=== PATIENT | male | born 1955 | race Caucasian/White ===

== ENCOUNTER → 2018-06-10 | Day surgery (SDC) | payer OTHER ==
[2018-06-02 13:21] VITALS: BMI 46.0
[~2018-06-10] VITALS: Ht 185.4 cm; Wt 159.1 kg
[~2018-06-10] MED LIST: ASPI81TA28 PO; ATEN50TA8 PO; ATOR-24 PO; DULO60CA44 PO; HYDR25TA4 PO; INSPMPNVLG; LIDOCAINE HCL 2% 2 ML VIAL (20MG/ML) ONE; LISI-729 PO; NIFE90TA PO; NTRGSL/4 UT; ONDANSETRON INJ 2 MG/ML 2 ML VIAL IV PRN; POTA-639 PO; PROPOFOL IV EMULSION 10 MG/ML 20 ML VIAL ONE
[2018-06-10 09:00] VITALS: Ht 185.4 cm; Wt 159.1 kg
--- NOTE | 2018-06-10 09:14 | Endo History and Physical ---
History & Physical Date of Service: Jun 10, 2018. Chief Complaint: FAMILY HISTORY OF COLON CANCER Referring Physician: DR JAYLEN TYSON History of Present Illness Patient with a family history of colorectal cancer in his father over age 80. He presents for colon rectal cancer screening today. He has no specific complaints or issues this afternoon. Past Surgical History Hx Cardiac Surgery: Yes (HEART CATH, NO STENTS) Hx Internal Defibrillator: No Hx Pacemaker: No Hx Abdominal Surgery: Yes (LAP JUVENCIO) Hx of Implantable Prosthesis: No Hx Post-Op Nausea and Vomiting: Yes Hx Cancer Surgery: No Hx Thoracic Surgery: No Hx Orthopedic: Yes (L TKR X3, R TKA X3) Family History None Social History Smoking Status: Never Smoker Hx Substance Use: No Hx Alcohol Use: No Allergies Coded Allergies: Metformin (Verified Adverse Reaction, Unknown, SEVERE DIARRHEA, 06/10/18) Current Medications Reported Home Medications Medications Dose Route/Sig Max Daily Dose Days Date Category Procardia Xl (Nifedipine) 90 Mg Tab 90 Mg PO QAM 06/02/18 Reported Hctz (Hydrochlorothiazide) 25 Mg Tab 25 Mg PO DAILY 06/02/18 Reported Cymbalta (Duloxetine Hcl) 60 Mg Cap 60 Mg PO BID 06/02/18 Reported Tenormin (Atenolol) 50 Mg Tab 50 Mg PO QAM 06/02/18 Reported Aspirin Ec (Aspirin) 81 Mg Tab 81 Mg PO DAILY 06/02/18 Reported novoLOG INSULIN PUMP (Insulin Aspart) 1 Ea Inj 1 Ea N/A UD 06/02/18 Reported Klor-Con (Potassium Chloride) 20 Meq Tabcr 20 Meq PO DAILY 06/02/18 Reported Lipitor (Atorvastatin Calcium) 40 Mg Tab 40 Mg PO HS 06/02/18 Reported Nitrostat (Nitroglycerin) 0.4 Mg Tab 0.4 Mg UT PRN 06/02/18 Reported Prinivil (Lisinopril) 5 Mg Tab 5 Mg PO HS 06/02/18 Reported Vital Signs Weight (Kilograms): 159.09 Height (Feet): 6 Height (Inches): 1 Date Time Temp Pulse Resp B/P (MAP) Pulse Ox O2 Delivery O2 Flow Rate FiO2 06/10/18 09:10 36.7 58 18 177/119 (138) 97 Room Air Physical Exam General Appearance: no apparent distress Respiratory/Chest: Auscultation: breath sounds normal Cardiovascular: Heart Auscultation: RRR Abdomen: Inspection & Palpation: soft Assessment and Plan Patient for colonoscopy today for colorectal cancer screening. We discussed the risks to include bleeding, infection, perforation, pain and need for follow- up studies.
--- NOTE | 2018-06-10 09:58 | GI REPORT ---
Patient Name: Lonny Kimbrough Procedure Date: 06/10/2018 9:25 AM Date of : 1955 Admit Type: Outpatient Age: 63 Gender: Male Attending MD: Dion Toth DO Procedure: Colonoscopy Providers: Dion Toth DO Referring MD: Dakota Patino Indications: Screening patient at increased risk: Family history of 1st-degree relative with colorectal cancer at age 60 years (or older) Medicines: Monitored Anesthesia Care Complications: No immediate complications. Estimated blood loss: Minimal. Estimated Blood Loss: Estimated blood loss was minimal. Procedure: Pre-Anesthesia Assessment: - Prior to the procedure, a History and Physical was performed, and patient medications, allergies and sensitivities were reviewed. The patient's tolerance of previous anesthesia was reviewed. - The risks and benefits of the procedure and the sedation options and risks were discussed with the patient. All questions were answered and informed consent was obtained. - Patient identification and proposed procedure were verified prior to the procedure by the physician, the nurse and the clinic coordinator. The procedure was verified in the procedure room. - Pre-procedure physical examination revealed no contraindications to sedation. - ASA Grade Assessment: III - A patient with severe systemic disease. - After reviewing the risks and benefits, the patient was deemed in satisfactory condition to undergo the procedure. - The anesthesia plan was to use monitored anesthesia care (MAC). - Immediately prior to administration of medications, the patient was re-assessed for adequacy to receive sedatives. - The heart rate, respiratory rate, oxygen saturations, blood pressure, adequacy of pulmonary ventilation, and response to care were monitored throughout the procedure. - The physical status of the patient was re-assessed after the procedure. After I obtained informed consent, the scope was passed under direct vision. Throughout the procedure, the patient's blood pressure, pulse, and oxygen saturations were monitored continuously. The scope was introduced through the anus and advanced to the cecum, identified by appendiceal orifice and ileocecal valve. The colonoscopy was somewhat difficult due to a redundant colon, significant looping and the patient's body habitus. Successful completion of the procedure was aided by using manual pressure and withdrawing and reinserting the scope. The quality of the bowel preparation was adequate to identify polyps 6 mm and larger in size. Findings: The perianal and digital rectal examinations were normal. Pertinent negatives include normal sphincter tone. A 30 mm polyp was found in the cecum. The polyp was semi-pedunculated. The polyp was removed with a hot snare. Resection and retrieval were complete. To prevent bleeding after the polypectomy, two hemostatic clips were successfully placed (MR conditional). There was no bleeding at the end of the procedure. Internal hemorrhoids were found during retroflexion. The hemorrhoids were mild. A 5 mm polyp was found in the rectum. The polyp was sessile. The polyp was removed with a cold snare. Resection and retrieval were complete. Estimated blood loss was minimal. The exam was otherwise without abnormality. Impression: - One 30 mm polyp in the cecum, removed with a hot snare. Resected and retrieved. Clips (MR conditional) were placed. - Internal hemorrhoids. - One 5 mm polyp in the rectum, removed with a cold snare. Resected and retrieved. - The examination was otherwise normal. Recommendation: - Discharge patient to home (ambulatory). - Advance diet as tolerated - advance as tolerated to resume previous diet. - Await pathology results. - Repeat colonoscopy in 1 year for surveillance based on pathology results. Dion Toth D.O. Dion Toth, 06/10/2018 9:58:09 AM This report has been signed electronically. Note Initiated On: 06/10/2018 9:25 AM Number of Addenda: 0 I attest to the content of the Intraoperative Record and orders documented therein, exceptions below {[id number]}
--- NOTE | 2018-06-10 10:00 | Anesthesiology Progress Note ---
Anesthesia Post Op Note Date & Time Jun 10, 2018 at 10:00 Vital Signs Pain Intensity: 0 Vital Signs Past 12 Hours Date Time Temp Pulse Resp B/P (MAP) Pulse Ox O2 Delivery O2 Flow Rate FiO2 06/10/18 09:53 66 16 146/91 (109) 97 Room Air 06/10/18 09:10 36.7 58 18 177/119 (138) 97 Room Air Notes Mental Status: alert / awake / arousable, participated in evaluation Pt Amnestic to Procedure: Yes Nausea / Vomiting: adequately controlled Pain: adequately controlled Airway Patency, RR, SpO2: stable & adequate BP & HR: stable & adequate Hydration State: stable & adequate Anesthetic Complications: no major complications apparent
--- NOTE | 2018-06-10 10:01 | Discharge Instructions ---
Endoscopy Patient Instructions Date / Procedure(s) Performed Jun 10, 2018. Colonoscopy Allergy Information Coded Allergies: Metformin (Verified Adverse Reaction, Unknown, SEVERE DIARRHEA, 06/10/18) Discharge Date / Findings Jun 10, 2018. Internal hemorrhoids 1 large colon polyp in the cecum Medication Instructions Stopped Medication(s): ASA Restart Stopped Medication(s): Reported Home Medications Medications Dose Route/Sig Max Daily Dose Days Date Category Procardia Xl (Nifedipine) 90 Mg Tab 90 Mg PO QAM 06/02/18 Reported Hctz (Hydrochlorothiazide) 25 Mg Tab 25 Mg PO DAILY 06/02/18 Reported Cymbalta (Duloxetine Hcl) 60 Mg Cap 60 Mg PO BID 06/02/18 Reported Tenormin (Atenolol) 50 Mg Tab 50 Mg PO QAM 06/02/18 Reported Aspirin Ec (Aspirin) 81 Mg Tab 81 Mg PO DAILY 06/02/18 Reported novoLOG INSULIN PUMP (Insulin Aspart) 1 Ea Inj 1 Ea N/A UD 06/02/18 Reported Klor-Con (Potassium Chloride) 20 Meq Tabcr 20 Meq PO DAILY 06/02/18 Reported Lipitor (Atorvastatin Calcium) 40 Mg Tab 40 Mg PO HS 06/02/18 Reported Nitrostat (Nitroglycerin) 0.4 Mg Tab 0.4 Mg UT PRN 06/02/18 Reported Prinivil (Lisinopril) 5 Mg Tab 5 Mg PO HS 06/02/18 Reported Provider Instructions Activity Restrictions - No exercising or heavy lifting for 24 hours. - Do not drink alcohol the day of the procedure. - Do not drive a car or operate machinery until the day after the procedure. - Do not make any important decisions or sign important papers in 24 hours after the procedure. Following Day: - Return to full activity which may include returning to work/school. Diet Start your diet with liquids and light foods (jello, soup, juice, toast). Then eat your usual diet if not nauseated. Treatment For Common After Affects For mild abdominal pain, bloating, or excessive gas: - Rest - Eat lightly - Lie on right side Follow-Up Information Repeat colonoscopy in one year for surveillance Avoid MRI for 6 weeks as 2 Instinct clips were placed after your polyp removal Anesthesia Information What You Should Know You have had a procedure that required some medicine to reduce anxiety and discomfort. This treatment is called moderate sedation. After receiving the treatment, you may be sleepy, but you will be able to breathe on your own. The effects of the treatment may last for several hours. Follow these instructions along with Activity/Diet recommendations noted above: * Do NOT do anything where dizziness or clumsiness would be dangerous. * Rest quietly at home today, then you can be up and about tomorrow. * Have a responsible person stay with you the rest of today. * You may have had an I.V. today. If so, you may take the dressing off later today. Recommendations Call your doctor if: * Trouble breathing * Continuous vomiting for more than 24 hours * Temperature above 101 degrees * Severe abdominal pain or bloating * Pain not relieved by pain medicine ordered * There is increased drainage or redness from any incision * A large amount of rectal bleeding greater than 2-3 tablespoons. (If you had a polyp/s removed or have hemorrhoids, a small amount of blood - from the rectum is to be expected.) * You have any unanswered questions or concerns. IN THE EVENT OF A SERIOUS EMERGENCY, GO TO THE NEAREST EMERGENCY ROOM Your discharge instructions were prepared by provider Dion Toth. Patient Instructions Signature Page Lonny Kimbrough Patient (or Guardian) Signature/Date: I have read and understand the instructions given to me by my caregivers. Caregiver/RN/Doctor Signature/Date: The above-named patient and/or guardian has received patient instructions on this date. + Original Patient Signature Page (only) stays with chart. Please make copy for patient.
[2018-06-10 10:23] VITALS: BP 133/76; PULSE 61; O2SAT 98
== END | disposition home or self-care (01) ==
LOC: C.GI 08:46
PROVIDERS: ATTEND Internal Medicine Gastroenterology
DX: Z12.11 Encounter for screening for malignant neoplasm of colon (principal); D12.0 Benign neoplasm of cecum; K62.1 Rectal polyp; K64.8 Other hemorrhoids; Z80.0 Family history of malignant neoplasm of digestive organs; Z79.82 Long term (current) use of aspirin; E11.9 Type 2 diabetes mellitus without complications; Z96.41 Presence of insulin pump (external) (internal); G47.33 Obstructive sleep apnea (adult) (pediatric); I25.2 Old myocardial infarction; G62.9 Polyneuropathy, unspecified; M19.90 Unspecified osteoarthritis, unspecified site; Z88.8 Allergy status to other drugs, medicaments and biological substances; E66.9 Obesity, unspecified; Z68.42 Body mass index [BMI] 45.0-49.9, adult; F17.220 Nicotine dependence, chewing tobacco, uncomplicated